=== PATIENT | female | born 1925 | race Caucasian/White ===

== ENCOUNTER 2016-02-20 08:00 | Outpatient (CLI) | payer MEDICARE, OTHER | END 2016-02-20 08:01 | disposition home or self-care (01) | DX: Z79.01 Long term (current) use of anticoagulants (principal); I10 Essential (primary) hypertension; N39.0 Urinary tract infection, site not specified ==

== ENCOUNTER 2016-03-17 13:38 | Outpatient (CLI) | payer MEDICARE, BC ==
[2016-03-17] MEDS ORDERED: IOPAMIDOL-300 100 ML VIAL IVP ONE (15:42)
== END 2016-03-17 13:39 | disposition home or self-care (01) ==
DX: N20.0 Calculus of kidney (principal); Z87.440 Personal history of urinary (tract) infections
CPT/HCPCS: 74178; 81001; Q9967

== ENCOUNTER 2016-04-01 08:00 | Outpatient (CLI) | payer MEDICARE, BC | END 2016-04-01 08:01 | disposition home or self-care (01) | DX: I48.0 Paroxysmal atrial fibrillation (principal); Z79.01 Long term (current) use of anticoagulants ==

== ENCOUNTER 2016-04-15 13:58 | Outpatient (CLI) | payer MEDICARE, BC | END 2016-04-15 13:59 | disposition home or self-care (01) | DX: R31.29 Other microscopic hematuria (principal); N39.0 Urinary tract infection, site not specified; I48.0 Paroxysmal atrial fibrillation; Z79.01 Long term (current) use of anticoagulants ==

== ENCOUNTER 2016-05-14 15:03 | Outpatient (CLI) | payer MEDICARE, BC | END 2016-05-14 15:04 | disposition home or self-care (01) | DX: I48.0 Paroxysmal atrial fibrillation (principal); N39.0 Urinary tract infection, site not specified; Z79.01 Long term (current) use of anticoagulants; R31.29 Other microscopic hematuria ==

== ENCOUNTER 2016-05-22 13:52 | Outpatient (CLI) | payer MEDICARE, BC | END 2016-05-22 13:53 | disposition home or self-care (01) | DX: Z79.01 Long term (current) use of anticoagulants (principal); I48.0 Paroxysmal atrial fibrillation ==

== ENCOUNTER 2016-05-30 14:16 | Outpatient (CLI) | payer MEDICARE, BC | END 2016-05-30 14:17 | disposition home or self-care (01) | DX: I48.0 Paroxysmal atrial fibrillation (principal); Z79.01 Long term (current) use of anticoagulants ==

== ENCOUNTER 2016-06-13 08:00 | Outpatient (CLI) | payer MEDICARE, BC | END 2016-06-13 08:01 | disposition home or self-care (01) | DX: I48.0 Paroxysmal atrial fibrillation (principal); Z79.01 Long term (current) use of anticoagulants ==

== ENCOUNTER 2016-07-16 15:58 | Outpatient (CLI) | payer MEDICARE, BC | END 2016-07-16 15:59 | disposition home or self-care (01) | LOC: LAB.F 15:58 | PROVIDERS: ATTEND Physician Assistant Medical | DX: I48.0 Paroxysmal atrial fibrillation (principal); Z79.01 Long term (current) use of anticoagulants | CPT/HCPCS: 85610 ==

== ENCOUNTER 2016-08-13 15:09 | Outpatient (CLI) | payer MEDICARE, BC | END 2016-08-13 15:10 | disposition home or self-care (01) | LOC: LAB.F 15:09 | PROVIDERS: ATTEND Physician Assistant Medical | DX: I48.0 Paroxysmal atrial fibrillation (principal); Z79.01 Long term (current) use of anticoagulants | CPT/HCPCS: 85610 ==

== ENCOUNTER 2016-09-23 14:17 | Outpatient (CLI) | payer MEDICARE, BC | END 2016-09-23 14:18 | disposition home or self-care (01) | LOC: LAB.F 14:17 | PROVIDERS: ATTEND Physician Assistant Medical | DX: I48.0 Paroxysmal atrial fibrillation (principal); Z79.01 Long term (current) use of anticoagulants | CPT/HCPCS: 85610 ==

== ENCOUNTER 2016-10-02 14:36 | Outpatient (CLI) | payer MEDICARE, BC | END 2016-10-02 14:37 | disposition home or self-care (01) | LOC: LAB.F 14:36 | PROVIDERS: ATTEND Physician Assistant Medical | DX: I48.0 Paroxysmal atrial fibrillation (principal); Z79.01 Long term (current) use of anticoagulants | CPT/HCPCS: 85610 ==

== ENCOUNTER 2016-12-08 14:20 | Outpatient (CLI) | payer MEDICARE, BC | END 2016-12-08 14:21 | disposition home or self-care (01) | LOC: LAB.F 14:20 | PROVIDERS: ATTEND Physician Assistant Medical | DX: I48.91 Unspecified atrial fibrillation (principal); Z79.01 Long term (current) use of anticoagulants | CPT/HCPCS: 85610 ==

== ENCOUNTER 2017-01-01 13:13 | Emergency (ER) | payer MEDICARE, BC ==
[2017-01-01 13:29] VITALS: BP 138/75
--- NOTE | 2017-01-01 13:49 | ED Physician Documentation ---
PD HPI LOWER EXT INJURY - Stated complaint Stated Complaint: WOUND CHECK - Chief complaint Chief Complaint: General - History obtained from History obtained from: Patient - History of Present Illness PD HPI LOW EXT INJURY LOCATION: Right, Lower leg (anteriorly) Type of injury: No: Fall, Blunt / blow, Laceration Where injury occurred: Home Timing - onset: How many weeks ago (1 week progressing) Timing - duration: Weeks (1) Timing - details: Gradual onset, Still present Worsened by: Palpating Associated symptoms: Swelling, Discolored (red with some blistering; no purulence.). No: Weakness, Numbness Similar symptoms before: Has not had sx before Recently seen: Not recently seen Review of Systems Constitutional: denies: Fever, Chills, Myalgias Nose: denies: Congestion Throat: denies: Sore throat Respiratory: denies: Cough GI: denies: Abdominal Pain, Vomiting, Diarrhea Skin: reports: Rash, Lesions (blisters anterior right lower leg.) Neurologic: denies: Generalized weakness, Focal weakness, Numbness PD PAST MEDICAL HISTORY - Past Medical History Cardiovascular: Hypertension, Peripheral Vascular Disease, Atrial fibrillation Respiratory: None Neuro: Peripheral neuropathy Endocrine/Autoimmune: None GI: Other : Incontinence, Frequency HEENT: None Psych: Depression, Anxiety Musculoskeletal: Osteoarthritis Derm: Other - Past Surgical History General: Bowel surgery, Other Ortho: Spine surgery, Other Cardiovascular: Other - Present Medications Home Medications: Ambulatory Orders Medication Instructions Recorded Confirmed Lisinopril 40 mg PO DAILY 12/28/12 12/31/15 Nadolol 20 mg PO QPM 12/28/12 12/31/15 Topiramate [Topamax] 50 mg PO DAILY 12/28/12 12/30/15 Diltiazem HCl [Diltiazem 24Hr ER] 180 mg PO DAILY 12/07/13 12/31/15 Cholecalciferol (Vitamin D3) 2,000 units PO DAILY 12/20/14 12/30/15 [Vitamin D] Acetaminophen [Tylenol Extra 1,000 mg PO TID PRN 12/30/15 12/31/15 Strength] [place]-3 Fatty Acids [Fish Oil] 1,200 mg DAILY 12/30/15 12/30/15 Divalproex ER [Depakote ER] 250 mg PO BID 12/31/15 12/31/15 Potassium Chloride [Micro-K] 10 meq PO BIDWM 12/31/15 12/31/15 Tolterodine Tartrate [Detrol LA] 4 mg PO DAILY 12/31/15 12/31/15 levoFLOXacin [Levaquin] 250 mg PO QD 01/03/16 01/03/16 Mupirocin 1 applic TP TID #15 oint...g. 01/01/17 Villa/Polymyx B Sulf/Dexameth 1 applic OP QID #3.5 oint...g. 01/01/17 [Kywqqr-Mrssp-Ljburxv Eye Ointm] Sulfamethox/Trimeth 800/160 1 each PO BID #14 tablet 01/01/17 [Bactrim Ds 800/160] - Allergies Allergies/Adverse Reactions: Allergies Allergy/AdvReac Type Severity Reaction Status Date / Time morphine Allergy Severe Rash Verified 01/01/17 13:29 Penicillins Allergy Severe Rash Verified 01/01/17 13:29 codeine [Codeine] Allergy Intermediate Rash Verified 01/01/17 13:29 - Social History Does the pt smoke?: No Smoking Status: Never smoker Does the pt drink ETOH?: No Does the pt have substance abuse?: No PD ED PE NORMAL - Vitals Vital signs reviewed: Yes - General General: Alert and oriented X 3, No acute distress, Well developed/nourished - HEENT HEENT: PERRL (right eye with lower lid redness and mild swelling. No FB seen in eye. There is some purulence noted medial canthus area. Cultured. ), EOMI - Neck Neck: Supple, no meningeal sign, No adenopathy - Cardiac Cardiac: RRR, No murmur - Respiratory Respiratory: Clear bilaterally - Derm Derm: Normal color, Warm and dry, Other (both legs with chronic stasis changes and discoloration. Right lower leg with redness and some swelling, with blistering of clear fluid (one had some blood and ecchymotic coloring to it). Not purulent. No calf tenderness. ) - Extremities Extremities: No calf tenderness / cord - Neuro Neuro: Alert and oriented X 3, No motor deficit, Normal speech Results - Vitals Vitals: Vital Signs - 24 hr 01/01/17 13:24 Temperature 36.6 C Heart Rate 76 Respiratory 18 Rate Blood Pressure 138/75 H O2 Saturation 96 Oxygen O2 Source Room air - Labs Labs: Microbiology 01/01/17 14:10 Wound Culture - Preliminary Leg - Right 01/01/17 14:10 Eye Culture - Preliminary Eye - Right PD MEDICAL DECISION MAKING - ED course Complexity details: reviewed results (cultures obtained from eye discharge and also right lower leg blister (clear fluid). Consider if same, if she had transferred germs to her eye after cleansing leg, or could be separate. Will want to cover for staph in particular for both. ), considered differential, d/ w patient Departure - Departure Disposition: 01 Home, Self Care Clinical Impression: Cellulitis of right lower leg Conjunctivitis, right eye Qualifiers: Conjunctivitis type: acute Acute conjunctivitis type: bacterial Qualified Code( s): H10.31 - Unspecified acute conjunctivitis, right eye Condition: Stable Record reviewed to determine appropriate education?: Yes Instructions: ED Infec Skin Cellulitis Follow-Up: Jacquelin Valentine PA-C [Primary Care Provider] - Prescriptions: Mupirocin 1 applic TP TID #15 oint...g. Villa/Polymyx B Sulf/Dexameth [Zfiebo-Iizxz-Yxqouep Eye Ointm] 1 applic OP QID # 3.5 oint...g. Sulfamethox/Trimeth 800/160 [Bactrim Ds 800/160] 1 each PO BID #14 tablet Comments: For the eye, cleanse it gently with warm moist towel 4 times a day and apply the antibiotic ointment/anti-inflammatory. I presume this will improve over the next 2-3 days. For the right leg, also cleanse it with warm moist towel 2- 3 times a day and apply mupirocin ointment. Be sure to keep the 2 ointments straight as the mupirocin does not want to go in the eye. It will be a bigger tube. Also take oral Bactrim twice daily for the next week for the infection of this and under the skin. Dressings and compression wrap or your stockings for the right leg. Elevated often. Recheck if not improved over the next 3-4 days, Call your primary care for an appointment. Discharge Date/Time: 01/01/17 15:09
[2017-01-01] MEDS ORDERED: MUPIROCIN 2% OINT 1 GM TOP STA (14:18)
[2017-01-01] MEDS ORDERED: SULFAMETH/TRIMETH DS 800/160 MG TABLET PO STA (14:18)
[2017-01-01] MEDS ORDERED: SULFAMETH/TRIMETH DS 800/160 MG TABLET PO ONE (14:28)
[2017-01-01] MEDS ORDERED: MUPIROCIN 2% OINT 1 GM ONE (14:29)
== END 2017-01-01 15:09 | disposition home or self-care (01) ==
LOC: ED 13:13
DX: H10.31 Unspecified acute conjunctivitis, right eye (principal); I10 Essential (primary) hypertension; I73.9 Peripheral vascular disease, unspecified
CPT/HCPCS: 87070; 87181; 87205; 99283; A9270

== ENCOUNTER 2017-01-09 15:14 | Outpatient (CLI) | payer MEDICARE, BC | END 2017-01-09 15:15 | disposition home or self-care (01) | LOC: LAB.F 15:14 | PROVIDERS: ATTEND Physician Assistant Medical | DX: I48.0 Paroxysmal atrial fibrillation (principal); Z79.01 Long term (current) use of anticoagulants | CPT/HCPCS: 85610 ==

== ENCOUNTER 2017-01-15 14:03 | Outpatient (CLI) | payer MEDICARE, BC | END 2017-01-15 14:04 | disposition home or self-care (01) | LOC: LAB.F 14:03 | PROVIDERS: ATTEND Physician Assistant Medical | DX: I48.0 Paroxysmal atrial fibrillation (principal); Z79.01 Long term (current) use of anticoagulants | CPT/HCPCS: 85610 ==

== ENCOUNTER 2017-04-03 11:27 | Outpatient (CLI) | payer MEDICARE, BC | END 2017-04-03 11:28 | disposition home or self-care (01) | LOC: LAB.F 11:27 | PROVIDERS: ATTEND Physician Assistant Medical | DX: I48.0 Paroxysmal atrial fibrillation (principal); Z79.01 Long term (current) use of anticoagulants | CPT/HCPCS: 85610 ==

== ENCOUNTER 2017-05-08 08:00 | Outpatient (CLI) | payer MEDICARE, BC ==
[2017-05-08 17:44] LABS: BASOPHILS % (AUTO) 0.4 %; EOSINOPHILS # (AUTO) 0.1 10^3/uL (0.0-0.7); HGB - HEMOGLOBIN 13.4 g/dL (12.0-16.0); LYMPHOCYTES # (AUTO) 1.3 10^3/uL (1.5-3.5); LYMPHOCYTES % (AUTO) 27.7 %; MEAN CORPUSCULAR HEMOGLOBIN 27.4 pg (27.0-31.0); MEAN CORPUSCULAR VOLUME 82.9 fL (81.0-99.0); MEAN PLATELET VOLUME 8.8 fL (7.9-10.8); MONOCYTES # (AUTO) 0.4 10^3/uL (0.0-1.0); MONOCYTES % (AUTO) 7.7 %; NEUTROPHILS % (AUTO) 62.2 %; PLT - PLATELET COUNT 144 10^3/uL (130-450); RED CELL DISTRIBUTION WIDTH 15.3 % (12.0-15.0); WHITE BLOOD COUNT 4.8 x10^3/uL (4.8-10.8)
[2017-05-08 18:07] LABS: ALBUMIN 4.2 g/dL (3.2-5.5); ALBUMIN/GLOBULIN RATIO 1.4 (1.0-2.2); ALKALINE PHOSPHATASE 43 IU/L (42-121); ALT ALANINE AMINOTRANSFERASE 11 IU/L (10-60); AST ASPARTATE AMINOTRANSFERASE 21 IU/L (10-42); BILIRUBIN,TOTAL 0.7 mg/dL (0.2-1.0); BUN - BLOOD UREA NITROGEN 15 mg/dL (6-20); CALCIUM 9.1 mg/dL (8.5-10.3); CARBON DIOXIDE - CO2 23 mmol/L (21-32); CHLORIDE 108 mmol/L (101-111); CHOL/HDL RATIO 2.3 (<4.4); CHOLESTEROL 245 mg/dL; CREATININE 0.9 mg/dL (0.4-1.0); GFR - MDRD 59 (>89); GLUCOSE 81 mg/dL (70-100); HDL CHOLESTEROL 107 mg/dL; LDL CHOLESTEROL,CALCULATED 128 mg/dL; LDL/HDL RATIO 1.2 (<4.4); SODIUM 141 mmol/L (135-145); TOTAL PROTEIN 7.3 g/dL (6.7-8.2); VLDL CHOLESTEROL 10 mg/dL
== END 2017-05-08 08:01 | disposition home or self-care (01) ==
LOC: LAB.F 08:00
PROVIDERS: ATTEND Physician Assistant Medical
DX: Z79.01 Long term (current) use of anticoagulants (principal); I48.0 Paroxysmal atrial fibrillation; I10 Essential (primary) hypertension
CPT/HCPCS: 36415; 80053; 80061; 83721; 85025; 85610

== ENCOUNTER 2017-06-12 14:25 | Outpatient (CLI) | payer MEDICARE, BC | END 2017-06-12 14:26 | disposition home or self-care (01) | LOC: LAB.F 14:25 | PROVIDERS: ATTEND Physician Assistant Medical | DX: Z79.01 Long term (current) use of anticoagulants (principal); I48.0 Paroxysmal atrial fibrillation | CPT/HCPCS: 85610 ==

== ENCOUNTER 2017-07-17 08:00 | Outpatient (CLI) | payer MEDICARE, BC | END 2017-07-17 08:01 | disposition home or self-care (01) | LOC: LAB.F 08:00 | PROVIDERS: ATTEND Physician Assistant Medical | DX: I48.0 Paroxysmal atrial fibrillation (principal); Z79.01 Long term (current) use of anticoagulants | CPT/HCPCS: 85610 ==

== ENCOUNTER 2017-07-17 14:58 | Outpatient (CLI) | payer MEDICARE, BC | END 2017-07-17 14:59 | disposition home or self-care (01) | LOC: LAB.F 14:58 | PROVIDERS: ATTEND Physician Assistant Medical | DX: I48.0 Paroxysmal atrial fibrillation (principal); Z79.01 Long term (current) use of anticoagulants ==

== ENCOUNTER 2017-08-04 08:00 | Outpatient (CLI) | payer MEDICARE, BC ==
[2017-08-04 18:38] LABS: INR 3.3 (0.8-1.2); PT - PROTHROMBIN TIME 36.1 secs (9.9-12.6)
== END 2017-08-04 08:01 | disposition home or self-care (01) ==
LOC: LAB.WCP 08:00
PROVIDERS: ATTEND Physician Assistant Medical
DX: I48.91 Unspecified atrial fibrillation (principal)
CPT/HCPCS: 85610

== ENCOUNTER 2017-08-11 08:00 | Outpatient (CLI) | payer MEDICARE, BC ==
[2017-08-11 17:32] LABS: INR 3.8 (0.8-1.2); PT - PROTHROMBIN TIME 40.6 secs (9.9-12.6)
== END 2017-08-11 08:01 | disposition home or self-care (01) ==
LOC: LAB.R 08:00
PROVIDERS: ATTEND Internal Medicine
DX: I48.91 Unspecified atrial fibrillation (principal); N39.0 Urinary tract infection, site not specified
CPT/HCPCS: 81001; 85610; 87086; 87181

== ENCOUNTER 2017-08-11 17:00 | Outpatient (CLI) | payer MEDICARE, BC ==
[2017-08-12 18:06] LABS: BILIRUBIN,URINE NEGATIVE (NEGATIVE); CLARITY,URINE SL. CLOUDY (CLEAR); GLUCOSE, URINE (UA) NEGATIVE (NEGATIVE); KETONES,URINE (UA) NEGATIVE (NEGATIVE); LEUKOCYTE ESTERASE, URINE MODERATE (NEGATIVE); NITRITE,URINE POSITIVE (NEGATIVE); OCCULT BLOOD,URINE LARGE (NEGATIVE); PH,URINE 6.5 PH (5.0-7.5); PROTEIN,URINE TRACE mg/dL (NEGATIVE); UROBILINOGEN,URINE 0.2 (NORMAL) E.U./dL (NORMAL)
[2017-08-12 18:25] LABS: BACTERIA,URINE Many /HPF (None Seen); CRYSTALS,URINE 3-5 Calcium Oxalate /LPF; SQUAMOUS EPITHELIAL CELL,UR RARE Squamous (<= Few); WBC CLUMPS,URINE PRESENT
== END 2017-08-11 23:59 ==
LOC: LAB.R 17:00
PROVIDERS: ATTEND Internal Medicine
DX: N39.0 Urinary tract infection, site not specified (principal)
CPT/HCPCS: 81001; 81003; 87086; 87181